=== PATIENT | male | born 1965 | race Caucasian/White ===

== ENCOUNTER 2024-03-24 09:42 | Observation (INO) | payer BC ==
[2024-03-24] MEDS ORDERED: Morphine 4 MG/ML VIAL ONE (10:58)
[2024-03-24] MEDS ORDERED: Ondansetron PF 4 MG/2 ML Vial ONE (10:58)
[2024-03-24 11:01] LABS: #Basophils 0.03 10x3/uL (0.0-0.2); #Eosinophils 0.12 10x3/uL (0.0-0.5); #Neutrophils 10.52 10x3/uL (1.5-8.4); %Basophils 0.2 % (0.0-2.0); %Eosinophils 0.9 % (0.0-6.0); %Lymphocytes 10.1 % (18.0-47.0); %Neutrophils 81.6 % (40.0-75.0); Hematocrit 47.2 % (38.8-50.0); Hemoglobin 15.7 g/dL (13.5-17.5); Mean Corpuscular HGB CONC 33.3 g/dL (32.0-36.0); Mean Corpuscular Hemoglobin 30.5 pg (27.0-33.0); Mean Corpuscular Volume 91.7 fL (81.2-95.1); Mean Platelet Volume 12.1 fL (7.4-10.4); Platelet Count 198 10x3/uL (150-450); RBC Distribution Width 13.4 % (11.5-14.5); Red Blood Cell (RBC) Count 5.15 10x6/uL (4.32-5.72); White Blood Cell (WBC) Count 12.9 10x3/uL (3.5-10.5)
[2024-03-24 11:26] LABS: ALT (SGPT) 16 U/L (8-55); AST (SGOT) 16 U/L (5-34); Albumin 3.6 g/dL (3.5-5.0); Alkaline Phosphatase 70 U/L (40-110); Anion Gap 16 mmol/L (10-20); BUN (Urea Nitrogen) 14 mg/dL (8.4-25.7); Bilirubin, Total 3.1 mg/dL (0.2-1.2); Calc. Creatinine Clearance 0 mL/min (70-130); Calcium 9.9 mg/dL (7.8-10.44); Carbon Dioxide 24 mmol/L (22-29); Chloride 103 mmol/L (98-107); Estimated GFR 94; Globulin 3.9 g/dL (2.4-3.5); Glucose 111 mg/dL (70-105); Potassium 4.5 mmol/L (3.5-5.1); Protein, Total 7.5 g/dL (6.0-8.3); Sodium 138 mmol/L (136-145)
[2024-03-24] MEDS ORDERED: Iopamidol 300 61% 100 ML VIAL FS ONE (12:00)
[2024-03-24 13:32] VITALS: BMI 24.3
[2024-03-24] MEDS ORDERED: Acetaminophen 325 MG TAB PO PRN (13:50)
[2024-03-24] MEDS ORDERED: Ondansetron PF 4 MG/2 ML Vial IVP PRN (13:50)
[2024-03-24] MEDS ORDERED: Ondansetron ODT 4 MG TAB PO PRN (13:50)
[2024-03-24] MEDS ORDERED: Diazepam 5 MG TAB PO PRN (14:19)
[2024-03-24] MEDS: Ampicillin/Sulbactam 3 GM in Sodium Chloride 0.9% 100 ML IVPB SCH (14:29)
[2024-03-24] MEDS: Lactated Ringer's 1,000 ML IV SCH (14:39)
[2024-03-24] MEDS: Ketorolac Tromethamine 30 MG (1 mL) VIAL IVP SCH (16:24)
[2024-03-24] MEDS: Piperacillin/Tazobactam 3.375 GM in Sodium Chloride 0.9% 100 ML IVPB SCH (16:25)
[2024-03-24] MEDS: Morphine 2 MG/ML VIAL SLOW IVP PRN (17:25)
[2024-03-24] MEDS: Famotidine 20 MG TAB PO SCH (20:48)
[2024-03-24] MEDS: Famotidine/PF 20 mg/2ml Vial SLOW IVP SCH (20:48)
[2024-03-24] MEDS: Mirtazapine 15 MG TAB PO SCH (20:48)
[2024-03-24] MEDS ORDERED: Heparin 5,000 UNITS/ML VIAL SC SCH (21:00)
[2024-03-25] MEDS: Levothyroxine Sodium 50 MCG TAB PO SCH (04:19)
[2024-03-25 04:48] LABS: #Basophils 0.05 10x3/uL (0.0-0.2); #Neutrophils 6.49 10x3/uL (1.5-8.4); %Basophils 0.5 % (0.0-2.0); %Eosinophils 5.3 % (0.0-6.0); %Monocytes 8.5 % (0.0-10.0); %Neutrophils 69.5 % (40.0-75.0); Hematocrit 40.6 % (38.8-50.0); Hemoglobin 13.5 g/dL (13.5-17.5); Mean Corpuscular HGB CONC 33.3 g/dL (32.0-36.0); Mean Corpuscular Hemoglobin 30.9 pg (27.0-33.0); Mean Corpuscular Volume 92.9 fL (81.2-95.1); Mean Platelet Volume 10.9 fL (7.4-10.4); Platelet Count 173 10x3/uL (150-450); RBC Distribution Width 13.3 % (11.5-14.5); Red Blood Cell (RBC) Count 4.37 10x6/uL (4.32-5.72); White Blood Cell (WBC) Count 9.4 10x3/uL (3.5-10.5)
[2024-03-25 05:03] LABS: ALT (SGPT) 12 U/L (8-55); AST (SGOT) 12 U/L (5-34); Albumin 3.1 g/dL (3.5-5.0); Alkaline Phosphatase 51 U/L (40-110); Anion Gap 15 mmol/L (10-20); BUN (Urea Nitrogen) 13 mg/dL (8.4-25.7); Bilirubin, Total 2.2 mg/dL (0.2-1.2); Calc. Creatinine Clearance 95 mL/min (70-130); Calcium 8.7 mg/dL (7.8-10.44); Carbon Dioxide 24 mmol/L (22-29); Chloride 106 mmol/L (98-107); Estimated GFR 96; Globulin 3.1 g/dL (2.4-3.5); Glucose 93 mg/dL (70-105); Potassium 3.9 mmol/L (3.5-5.1); Protein, Total 6.2 g/dL (6.0-8.3); Sodium 141 mmol/L (136-145)
[2024-03-25] MEDS: Heparin 5,000 UNITS/ML VIAL SC SCH (09:03)
[2024-03-25] MEDS: traMADol HCl 50 MG TAB PO PRN (11:34)
[2024-03-25 17:36] VITALS: BP 133/79; TEMP 98.3
== END 2024-03-25 18:25 | disposition home or self-care (01) ==
LOC: CSHERS 09:42 → CSHTELE 11:40 → INTOOBSV 11:40
PROVIDERS: ADMIT Internal Medicine; ATTEND Internal Medicine
DX: R10.31 Right lower quadrant pain (principal); F41.9 Anxiety disorder, unspecified; G47.00 Insomnia, unspecified; R94.5 Abnormal results of liver function studies; E03.9 Hypothyroidism, unspecified; Z90.89 Acquired absence of other organs; Z79.890 Hormone replacement therapy; Z98.890 Other specified postprocedural states
CPT/HCPCS: 36415; 74177; 80053; 85025; 86140; 94760; 94762; 96374; 96375; G0378; J0295; J1885; J2272; J2405; J2543; J7120; Q9967

== ENCOUNTER 2024-05-01 07:10 | Day surgery (SDC) | payer BC ==
[2024-04-27 09:15] VITALS: BMI 24.2
[2024-05-01] MEDS ORDERED: PROPOFOL 60 ML ONE (08:57)
[2024-05-01] MEDS ORDERED: PROPOFOL 20 ML ONE ×2 (09:36→09:52)
== END 2024-05-01 10:50 | disposition home or self-care (01) ==
LOC: CSHSDC 07:10
PROVIDERS: ATTEND Surgery
PROC: 0DBE8ZZ Excision of Large Intestine, Via Natural or Artificial Opening Endoscopic (ICD-10-PCS; principal; 2024-05-01)
DX: K57.30 Diverticulosis of large intestine without perforation or abscess without bleeding (principal); E03.9 Hypothyroidism, unspecified; F41.9 Anxiety disorder, unspecified; K64.4 Residual hemorrhoidal skin tags; Z79.890 Hormone replacement therapy; Z79.899 Other long term (current) drug therapy
CPT/HCPCS: 88305; J2704